=== PATIENT | female | born 1960 | race Asian ===

== ENCOUNTER → 2019-11-17 13:15 | Outpatient (CLI) | payer OTHER, SELFPAY ==
--- NOTE | 2019-11-17 | DI.RAD.S_ITS ---
PROCEDURE: FL SHOULDER INJECTION MR/CT LT INDICATIONS: PAIN IN LEFT SHOULDER TECHNIQUE: The indications, alternatives, benefits, risks, and complications of the procedure were explained to the patient. Written informed consent was obtained and placed in the chart. The shoulder was examined fluoroscopically and a site for needle placement chosen for entry into the glenohumeral joint from an anterior approach. The skin was prepped and draped in a sterile fashion, and 1% lidocaine infiltrated from skin down to joint capsule. A spinal needle was inserted into the glenohumeral joint, and a small amount of iodinated contrast media injected to confirm intra-articular placement of the needle tip. This was followed by approximately 12 mL dilute solution of a gadolinium containing MR contrast agent. The needle was removed and a dressing was applied. The patient was given postprocedural instructions and sent to the MR suite for MR imaging. FINDINGS: A single fluoroscopic spot image demonstrates intra-articular location of injected iodinated contrast. IMPRESSION: Successful fluoroscopically guided administration of dilute Gadolinium solution into the shoulder joint for MR arthrogram. Dictated by: Mir Gonzalez M.D. on 11/17/2019 at 16:13 Approved by: Mir Gonzalez M.D. on 11/17/2019 at 16:13
--- NOTE | 2019-11-17 | DI.MRI.S_ITS ---
PROCEDURE: MR SHOULDER LT W CON INDICATIONS: PAIN IN LEFT SHOULDER WITH DECREASED RANGE OF MOTION TECHNIQUE: After the administration of 12 mL of dilute intra-articular Gadolinium contrast, oblique coronal T1 and T2 spin echo with fat saturation, oblique sagittal T1 spin echo with and without fat saturation, oblique sagittal T2 fast spin echo with fat saturation, axial T1 spin echo with fat saturation through the shoulder. COMPARISON: None. FINDINGS: Image quality: Excellent. Rotator cuff: There is a small linear partial thickness articular sided tear of the conjoined fibers of the superior cuff with linear intrasubstance extension proximally into the supraspinatus. No discrete full-thickness tear or tendon retraction. The subscapularis and teres minor appear intact. No rotator cuff muscle atrophy on sagittal images. Bones and bursae: No bone marrow contusions or fractures. There is mild acromioclavicular joint degeneration. The acromion demonstrates conventional anatomy, without an os acromiale. There is a small amount of subacromial/subdeltoid bursal fluid. Capsule and soft tissues: There is minimal undersurface detachment of the superior labrum. The glenohumeral ligaments appear intact. The long head of the biceps tendon demonstrates normal location and morphology. The biceps brandt appears intact in the rotator interval. The coracohumeral ligament is of normal thickness. No intra-articular bodies. IMPRESSION: 1. Small linear partial thickness articular surface tear in the conjoined fibers of the superior cuff distally. No full-thickness rotator cuff tear or tendon retraction. 2. Minimal undersurface detachment of the superior labrum. 3. Mild acromioclavicular joint degeneration with small amount of subacromial/subdeltoid bursal fluid. Dictated by: Greg Graham M.D. on 11/20/2019 at 10:05 Approved by: Greg Graham M.D. on 11/20/2019 at 10:27
== END ==
PROVIDERS: Family Provider Internal Medicine; PCP Internal Medicine; Referring Provider Internal Medicine; Visit Provider Internal Medicine
DX: M25.512 Pain in left shoulder (principal); M19.012 Primary osteoarthritis, left shoulder; M75.112 Incomplete rotator cuff tear or rupture of left shoulder, not specified as traumatic
CPT/HCPCS: 23350; 73222; 77002

== ENCOUNTER → 2021-05-06 14:19 | Outpatient (CLI) | payer OTHER, SELFPAY ==
[2021-05-06 16:11] LABS: Add Manual Diff / Slide Review NO; Basophils Absolute Auto 100 /uL (0-100); Basophils Percent Auto 1.5 % (0-2); Eosinophils Absolute Auto 100 /uL (0-450); Eosinophils Percent Auto 2.4 % (2-4); Hematocrit 37.8 % (36-46); Hemoglobin 12.5 g/dL (12.0-16.0); Lymphocytes Absolute Auto 2300 /uL (1100-4500); Lymphocytes Percent Auto 42.3 % (25-40); Mean Corpuscular Hemoglobin 28.6 PG (26-34); Mean Corpuscular Volume 86.5 fL (80-100); Monocytes Absolute Auto 600 /uL (0-900); Monocytes Percent Auto 10.5 % (3-14); Neutrophils Absolute Auto 2300 /uL (1500-7000); Neutrophils Percent Auto 43.3 % (50-75); Platelet Count 198 X10^3/uL (150-400); Red Blood Cell Count 4.37 X10^6/uL (4.0-5.2); White Blood Cell Count 5.4 X10^3/uL (4.5-11.0)
== END ==
PROVIDERS: Family Provider Internal Medicine; PCP Internal Medicine; Referring Provider Orthopaedic Surgery Orthopaedic Surgery of the Spine; Visit Provider Orthopaedic Surgery Orthopaedic Surgery of the Spine
DX: Z01.818 Encounter for other preprocedural examination (principal); Z01.812 Encounter for preprocedural laboratory examination
CPT/HCPCS: 36415; 85025; 93005

== ENCOUNTER → 2021-05-26 08:54 | Outpatient (CLI) | payer OTHER, SELFPAY ==
[2021-05-26 13:51] LABS: COVID19 -Nasal RAPID Negative (Negative)
== END ==
PROVIDERS: Family Provider Internal Medicine; PCP Internal Medicine; Visit Provider Physician Assistant
DX: Z20.822 Contact with and (suspected) exposure to COVID-19 (principal); Z01.812 Encounter for preprocedural laboratory examination
CPT/HCPCS: 87635

== ENCOUNTER 2021-05-28 12:39 | Day surgery (SDC) | payer OTHER, SELFPAY ==
[2021-05-20 09:54] VITALS: BMI 32.3
[2021-05-28] VITALS (13 sets, daily range): BP systolic 131–149; BP diastolic 60–84; PULSE 60–86; RESP 11–94; TEMP 36.1–36.7; O2SAT 9–97; BMI 32.3
--- NOTE | 2021-05-28 | DI.RAD.S_ITS ---
PROCEDURE: XR CERVICAL SPINE 2V OR 3V INDICATIONS: C5-6 ACDF TECHNIQUE: 3 low resolution fluoroscopic spot films were obtained intraoperatively. COMPARISON: None. FINDINGS: Intraoperative fluoroscopic low resolution spot films show C5-6 anterior cervical discectomy and fusion with anterior plate and screw hardware in good position. IMPRESSION: Fluoroscopic guidance Approved by: Eder Carrizales M.D. on 05/28/2021 at 16:40
[2021-05-28] MEDS: LACTATED RINGERS 1,000 ML 100 ML IV ×2 (13:46→16:55)
--- NOTE | 2021-05-28 14:47 | PM.PREOP ---
Pre-operative Note COVID-19 COVID-19 status: Negative Result date/Date tested (Pos, Neg/Pending): 05/26/21 Interval Note History & Physical reviewed/Exam performed by Physician: Yes Changes to H&P: No
[2021-05-28] MEDS: CEFAZOLIN 1 GM VIAL 2 GM IV (15:47)
[2021-05-28] MEDS: EPINEPHrine 1 MG/ML 0.15 MG INJ (15:53)
[2021-05-28] MEDS: BUPIVACAINE 0.25% (PF) VIAL 30 ML INJ (15:53)
--- NOTE | 2021-05-28 16:48 | SUR.OPER ---
Prone on spine table, head in foam head support, padded chest and pelvic supports, gel pad at knees, lower legs supported by pillows; nipples, genitalia and toes free of pressure, arms secured on foam padded arm boards at <90 degrees abduction. Tape over blanket at thigh secured to table.
--- NOTE | 2021-05-28 17:31 | PM.OP.1 ---
Operative Date/Time/Diagnoses Date of procedure: 05/28/21 Time of procedure: 15:00 Pre-op diagnosis: 1. C5-6 spinal stenosis 2. C5-6 spondylosis with radiculopathy Post-op diagnosis: same Procedure & Clinicians Procedure: 1. C5-6 anterior cervical diskectomy and fusion 2. C5-6 anterior interbody cage placement 3. C5-6 anterior instrumentation with plate and screw placement in C5 and C6 vertebrae 4. Utilization of microsurgical technique and operating microscope Same procedure as scheduled: Yes Indications: Patient has been having chronic neck pain and worsening cervical radiculopathy. Patient failed multiple conservative management with worsening pain weakness and numbness in her upper extremity. Patient has been having difficulty performing activity of daily living. After discussing risks benefits of treatment options, patient elected proceed with surgery. Surgeon: Vivian Alegria [employer] Miller: Bhavana Marquez Click Yes if Unassisted: No Anesthesia Type: General Operative Notes Closure Type: primary Specimen(s): none sent Prosthetic devices, grafts, tissues, transplants, or devices: Globus Extend Plate, PEEK cage Estimated Blood Loss (mL): 10 Blood products transfused: none Procedure in detail: Patient was seen in the preoperative area. Risks and benefits of the surgery was discussed with the patient. Informed consent was obtained from the patient and placed in the chart. Surgical site was marked. Patient was taken to the operative room. General anesthesia was administered. Prophylactic antibiotic was given to the patient less than 30 min before the incision was made. Patient was placed into a supine position on a radiolucent table. Patient's shoulders were taped down to allow proper C-arm imaging. Anterior cervical area was prepped and draped in a sterile fashion. Time-out was performed at this time. Using lateral C-arm imaging, the level between C5 and C6 was identified and marked on patient's neck. A oblique incision from midline towards medial border of sternocleidomastoid muscle was made. The platysma muscle was incised in line with skin incision. Metzenbaum scissor was used to develop the plane between the medial border of sternocleidomastoid d and the strap muscles medially. The carotid sheath and its contents were identified and protected behind the hand-held retractor during the entire case. The plane between the carotid sheath and strap muscles was developed with Metzenbaum scissors. Dissection was made down to the level of the anterior cervical fascia. Longus colli muscle was incised on the anterior aspect of vertebral bodies bilaterally from C5-C6. Spinal needle was placed into the C5-6 disc space and confirmed with lateral C-arm imaging. Using microsurgical technique and operative microscope, anterior cervical diskectomy was performed at C5-6 level. This was done by removing the disc material, removing the anterior and posterior osteophytes posterior longitudinal ligaments along with performing bilateral foraminotomies at the C5-6 levels. Patient was found to have severe foraminal stenosis. Patient's stenosis was fully decompressed after decompression was completed. After the diskectomy was completed, an anterior interbody cage was obtained. The cage was packed with DBM bone grafting material. One cage each along with the bone grafting material was then packed into the interbody space at C5-6 along with an anterior cervical plate. The cervical plate was stabilized to the C5-C6 vertebrae using screws. After confirming placement of the hardware with AP and lateral C-arm imaging, the screws were locked into the plate using the locking mechanism and torque limiting screwdriver. After the hardware was placed and confirmed with AP and lateral C-arm imaging, the wound was irrigated with sterile normal saline. The platysma muscle and the subcutaneous tissue was closed with 2-0 Vicryl. The skin was closed with 4-0 Monocryl and Steri-Strips. Patient tolerated the procedure well. Patient was transferred recovery room in stable condition. There were no complications. Complications: none Post-operative Condition: stable Disposition: PACU Plan for aftercare: Discharge to home
--- NOTE | 2021-05-28 17:36 | SUR.PHASEI ---
Pt to PACU with Dr Duque and [place] MANE after general anesthesia breathing unassisted. Placed on 2L NC oxygen. Denies pain.
[2021-05-28] MEDS: ONDANSETRON 4 MG/2 ML INJ IV (17:46)
[2021-05-28] MEDS: fentaNYL 100 MCG/2 ML INJ IV (17:57)
[2021-05-28] MEDS: HYDROMORPHONE 2 MG INJ IV (18:15)
[2021-05-28] MEDS: OXYCODONE/ACETAMINOPHEN 5/325 TABLET 1 TAB PO ×2 (18:30→19:16)
--- NOTE | 2021-05-28 20:05 | SUR.PHASEII ---
Pt discharge to home with . Able to walk to BR and void prior to discharge. Discharge with soft collar in place, trachea midline.
== END 2021-05-28 19:40 | disposition home or self-care (01) ==
PROVIDERS: Family Provider Internal Medicine; PCP Internal Medicine; Referring Provider Orthopaedic Surgery; Visit Provider Orthopaedic Surgery Orthopaedic Surgery of the Spine
PROC: (CPT 22551; principal; 2021-05-28 14:45)
DX: M48.02 Spinal stenosis, cervical region (principal); M47.22 Other spondylosis with radiculopathy, cervical region; M25.78 Osteophyte, vertebrae
CPT/HCPCS: 22551; 22853; 72040; 76000; C1776; J0171; J0690; J1100; J1170; J2250; J2405; J2704; J3010